=== PATIENT | female | born 1960 | race Caucasian/White ===

== ENCOUNTER 2017-04-17 18:48 | Emergency (ER) | payer OTHER ==
[~2017-04-17] VITALS: Ht 167.6 cm; Wt 90.7 kg
[~2017-04-17 18:48] MED LIST: ABILIFY 5 MG TAB5 M1 PO; AMBIEN 10 MG TA10 MG PO; AMBIEN PO; AMOXICILLIN 50500 M1 PO; ASPIR 8181 MG PO; ASPIRIN325 PO; ASPIRIN81 M2 PO; ATIVAN0.5 MG PO; ATIVAN1 MG PO; AUGMENTIN 875875 MG PO; AZITHROMYCIN 2250 MG PO; BACTRIM DS TAB1 EACH PO; BENTYL10 MG PO; BENTYL20 MG PO; BENZTROPINE ME0.5 MG; CARAFATE 1 GM TA1 G1; CARAFATE 1 GM TA1 G1 PO; CARAFATE 11 GM/10 M1 PO; CARISOPRODOL 3350 MG PO; CELEXA20 MG PO; CHLORPROMAZINE200 MG PO; CHLORPROMAZINE25 M3 PO; CHLORPROMAZINE50 M2 PO; CLONAZEPAM; COLACE100 MG PO; CRESTOR10 MG PO; CRESTOR20 MG PO; DARVOCET-N 1001 EACH PO; DESYREL300 MG PO; DUONEB 2.5-0.5 M3 ML INH; FENOFIBRATE160 MG PO; GABAPENTIN 100100 MG; GABAPENTIN PO; HYDROCODON-ACE1 EAC7 PO; HYDROCODON-ACE1 EACH PO; HYDROCODONE-AP1 EAC6 PO; IBUPROFEN 800800 M1 PO; IMDUR 30 MG TAB30 M1 PO; KEFLEX500 MG PO; LEVAQUIN 500 M500 M2 PO; LEVAQUIN 750 M750 MG PO; LEVOTHYROXIN0.025 MG PO; LEVOTHYROXINE0.05 MG PO; LOPRESSOR25 PO; LORTAB 5 MG/5001 TA1 PO; LOXAPINE25 MG; LOXAPINE5 MG PO; MEDROLDOSEPACK PO; METAMUCIL PAC1 UDPKT PO; METOPROLOL TART25 MG PO; MIRALAX17 GM PO; MOBIC7.5 M1 PO; NAPROSYN500 MG PO; NEURONTIN 300300 M1 PO; NEURONTIN 400400 M1 PO; NEURONTIN 400M400 M2 PO; NEURONTIN600 MG PO; NEXIUM; NEXIUM40 MG PO; NORCO 10-325 T1 EACH PO; NORCO 5-325 TA1 EAC1 PO; NORCO 5-325 TA1 EACH PO; NORFLEX100 MG PO; OLANZAPINE10 MG PO; OXYCODONE HCL 55 MG PO; PANTOPRAZOLE SO40 M1 PO; PAXIL10 MG; PERCOCET 5-3251 EACH PO; PERCOCET 7.5-31 EACH PO; PERCOCET PO; PREDNISONE 20 M20 MG PO; PROBIOTIC1 EAC1 PO; RELAFEN500 MG PO; REMERON15 M2 PO; TOPAMAX50 MG PO; TORADOL 10 MG T10 MG PO; TRAMADOL; TRAMADOL 50 MG50 MG PO; TRAZODONE 150150 M1 PO; TRICOR145 MG; TYLENOL325 MG PO; ULTRAM 50MG TAB50 MG PO; UNICOMPLEX M TA1 TA1 PO; VALIUM5 MG PO; VENTOLIN HFA 1818 GM INH; VENTOLIN HFA INH8 GM IH; VICODIN ES TAB1 EACH PO; VISTARIL 25 MG25 M1 PO; VITAMIN B-12500 MCG PO; XANAX XR1 MG PO; XANAX1 MG PO; XARELTO10 MG PO; ZANTAC 150MG T150 M1 PO; ZANTAC 150MG T150 MG PO; ZOFRAN; ZOFRAN 4 MG ORAL4 M1 DIS; ZOFRAN ODT4 MG DISSOLVE; ZOFRAN ODT4 MG PO; ZPAK PO; ZYPREXA 10 MG T10 MG PO; ZYPREXA 5 MG TAB5 M2 PO
[2017-04-17] MEDS ORDERED: ATIVAN0.5 MG PO (19:11)
[2017-04-17] MEDS ORDERED: CARAFATE 1 GM TA1 G1 PO (19:12)
[2017-04-17 19:43] LABS: BE 0 mmol/L (-2 to +3); PCO2 37.2 mmHg (35.0-45.0); pH 7.428 (7.340-7.450)
[2017-04-17 20:01] LABS: ABSOLUTE BASOPHILS 0.1 thou/uL (0.0-0.2); ABSOLUTE EOSINOPHILS 0.2 thou/uL (0.0-0.7); ABSOLUTE MONOCYTES 0.9 thou/uL (0.0-1.2); ABSOLUTE NEUTROPHILS 7.6 thou/uL (1.6-8.1); BASOPHILS 0.7 %; EOSINOPHILS 1.4 %; HEMATOCRIT 41.2 % (37.0-47.0); HEMOGLOBIN 13.3 gm/dL (12.0-15.0); LYMPHOCYTES 31.4 %; MCH 27.7 pg (26.0-34.0); MCHC 32.3 g/dL (28.0-37.0); MCV 85.6 fL (80.0-100.0); MONOCYTES 6.8 %; MPV 8.9 fl. (7.2-11.1); NUCLEATED RBCS 0 /100WBC; PLATELET COUNT* 241 thou/uL (150-400); POLYS 59.7 %; RBC 4.81 mil/uL (4.20-5.00); RDW-CV 17.9 % (10.5-14.5); WBC 12.7 thou/uL (4.0-11.0)
[2017-04-17 20:15] LABS: CREATININE 0.9 mg/dL (0.6-1.3); POTASSIUM 4.3 mmol/L (3.5-5.1)
[2017-04-17 20:24] LABS: URINE BILIRUBIN NEGATIVE (Negative); URINE BLOOD NEGATIVE (Negative); URINE CLARITY CLEAR; URINE COLOR YELLOW; URINE GLUCOSE-RANDOM NEGATIVE (Negative); URINE KETONES NEGATIVE (Negative); URINE LEUKOCYTES-REFLEX NEGATIVE (Negative); URINE NITRITE-REFLEX NEGATIVE (Negative); URINE PROTEIN NEGATIVE (Negative); URINE SPECIFIC GRAVITY <= 1.005 (1.005-1.030); URINE UROBILINOGEN 0.2 E.U./dl (0.2-1.0)
[2017-04-17 20:25] LABS: ALBUMIN 3.4 g/dL (3.4-5.0); TOTAL BILIRUBIN 0.4 mg/dL (<0.1-1.0)
[2017-04-17] MEDS ORDERED: PREDNISONE 20 M20 M1 PO (21:02)
[2017-04-17] MEDS ORDERED: LEVAQUIN 500 M500 MG PO (21:02)
[2017-04-17 21:51] VITALS: BP 130/76
--- NOTE | 2017-04-18 17:26 | EKG ---
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 : 1960 Requested By: Laura Cheema Order Number: [id number] MD: Rei Loza Measurements Intervals [place] Rate: 95 P: 44 IA: 161 QRS: 31 QRSD: 112 T: 21 QT: 394 QTc: 496 Interpretive Statements Sinus rhythm Borderline intraventricular conduction delay Abnormal inferior Q waves Borderline prolonged QT interval Compared to ECG 07/06/2016 13:51:48 Inferior Q waves now present Q waves now present Sinus tachycardia no longer present Myocardial infarct finding no longer present Electronically Signed On 04-18-2017 17:25:53 WEB PRODUCER by Rei Loza [email or web address] <ELECTRONICALLY SIGNED> By: Rei Loza MD, [facility] 04/18/17 1725 1903 1903 Rei Loza MD, [facility] /EPI
== END 2017-04-17 21:52 | disposition home or self-care (01) ==
LOC: M.ERS 18:48
PROVIDERS: Personal Emergency Response Attendant
DX: J18.9 Pneumonia, unspecified organism (principal); F31.9 Bipolar disorder, unspecified; E78.5 Hyperlipidemia, unspecified; F17.210 Nicotine dependence, cigarettes, uncomplicated; Z90.49 Acquired absence of other specified parts of digestive tract; Z95.5 Presence of coronary angioplasty implant and graft; Z88.5 Allergy status to narcotic agent

== ENCOUNTER 2017-06-22 13:54 | Emergency (ER) | payer OTHER ==
[~2017-06-22] VITALS: Ht 170.2 cm; Wt 95.3 kg
[~2017-06-22 13:54] MED LIST changes: +LEVAQUIN 500 M500 MG PO; +PREDNISONE 20 M20 M1 PO
[2017-06-22 14:25] LABS: ABSOLUTE BASOPHILS 0.1 thou/uL (0.0-0.2); ABSOLUTE EOSINOPHILS 0.2 thou/uL (0.0-0.7); ABSOLUTE LYMPHOCYTES 3.4 thou/uL (0.8-5.3); ABSOLUTE MONOCYTES 0.8 thou/uL (0.0-1.2); ABSOLUTE NEUTROPHILS 6.4 thou/uL (1.6-8.1); BASOPHILS 0.7 %; HEMATOCRIT 40.9 % (37.0-47.0); HEMOGLOBIN 13.3 gm/dL (12.0-15.0); MCHC 32.6 g/dL (28.0-37.0); MCV 85.9 fL (80.0-100.0); MONOCYTES 7.4 %; MPV 9.2 fl. (7.2-11.1); NUCLEATED RBCS 0 /100WBC; PLATELET COUNT* 228 thou/uL (150-400); POLYS 58.9 %; RBC 4.76 mil/uL (4.20-5.00); RDW-CV 17.7 % (10.5-14.5); WBC 10.8 thou/uL (4.0-11.0)
[2017-06-22 14:28] LABS: ANION GAP 11 mmol/L (7-16); APTT 29.2 Seconds (25.0-31.3); BUN 14 mg/dL (7-18); CALCIUM 8.6 mg/dL (8.5-10.1); CHLORIDE 105 mmol/L (98-107); CO2 25 mmol/L (21-32); GLUCOSE 140 mg/dL (70-99); INR 1.1; POTASSIUM 3.6 mmol/L (3.5-5.1); PROTIME 10.6 Seconds (9.20-11.50); SODIUM 141 mmol/L (136-145)
[2017-06-22 14:50] LABS: ALBUMIN 3.3 g/dL (3.4-5.0); ALKALINE PHOSPHATASE 120 U/L (46-116); CK-MB MASS < 0.5 ng/mL (<0.5-3.6); LIPASE 270 U/L (73-393); MAGNESIUM 1.9 mg/dL (1.8-2.4); NT-PRO BRAIN NAT PEPTIDE 113 pg/mL (<300); SGOT 18 U/L (15-37); SGPT 34 U/L (30-65); TOTAL BILIRUBIN 0.5 mg/dL (<0.1-1.0); TOTAL PROTEIN 7.3 g/dL (6.4-8.2); TROPONIN-I LEVEL <0.06 ng/mL (<0.06)
[2017-06-22 15:02] VITALS: BP 126/69
--- NOTE | 2017-06-23 14:09 | EKG ---
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 : 1960 Requested By: Sung Kirby Order Number: [id number] MD: Rei Loza Measurements Intervals [place] Rate: 93 P: 68 [place]: 147 QRS: 65 QRSD: 117 T: 19 QT: 403 QTc: 502 Interpretive Statements Sinus rhythm Rare pvc's Nonspecific intraventricular conduction delay Baseline wander in lead(s) V6 Compared to ECG 04/17/2017 19:03:48 Ventricular premature complex(es) now present Electronically Signed On 06-23-2017 14:09:01 CDT by Rei Loza [email or web address] <ELECTRONICALLY SIGNED> By: Rei Loza MD, [facility] 06/23/17 1409 1400 1400 Rei Loza MD, [facility] /EPI
== END 2017-06-22 15:03 | disposition home or self-care (01) ==
LOC: M.ERS 13:54
PROVIDERS: Family Medicine
DX: R07.89 Other chest pain (principal); F17.210 Nicotine dependence, cigarettes, uncomplicated; K21.9 Gastro-esophageal reflux disease without esophagitis; F31.9 Bipolar disorder, unspecified; E78.5 Hyperlipidemia, unspecified; Z90.49 Acquired absence of other specified parts of digestive tract; Z88.5 Allergy status to narcotic agent

== ENCOUNTER 2017-07-08 16:03 | Emergency (ER) | payer OTHER ==
[~2017-07-08] VITALS: Ht 170.2 cm; Wt 90.7 kg
[2017-07-08] MEDS ORDERED: TRAMADOL 50 MG50 MG PO (17:11)
[2017-07-08 17:17] VITALS: BP 135/74
== END 2017-07-08 17:25 | disposition home or self-care (01) ==
LOC: M.ERS 16:03
DX: M25.571 Pain in right ankle and joints of right foot (principal); M79.661 Pain in right lower leg; F31.9 Bipolar disorder, unspecified; E78.5 Hyperlipidemia, unspecified; K21.9 Gastro-esophageal reflux disease without esophagitis; F17.210 Nicotine dependence, cigarettes, uncomplicated; Z88.5 Allergy status to narcotic agent

== ENCOUNTER 2017-07-17 09:56 | Outpatient (CLI) | payer OTHER ==
[~2017-07-17] VITALS: Ht 167.6 cm; Wt 101.2 kg
[2017-07-17 11:32] LABS: ABSOLUTE BASOPHILS 0.1 thou/uL (0.0-0.2); ABSOLUTE EOSINOPHILS 0.2 thou/uL (0.0-0.7); ABSOLUTE LYMPHOCYTES 4.2 thou/uL (0.8-5.3); ABSOLUTE MONOCYTES 1.2 thou/uL (0.0-1.2); ABSOLUTE NEUTROPHILS 7.6 thou/uL (1.6-8.1); BASOPHILS 0.4 %; EOSINOPHILS 1.3 %; HEMATOCRIT 45.3 % (37.0-47.0); HEMOGLOBIN 14.7 gm/dL (12.0-15.0); LYMPHOCYTES 31.8 %; MCH 27.8 pg (26.0-34.0); MCHC 32.3 g/dL (28.0-37.0); MONOCYTES 9.4 %; NUCLEATED RBCS 0 /100WBC; PLATELET COUNT* 296 thou/uL (150-400); POLYS 57.1 %; RBC 5.27 mil/uL (4.20-5.00); RDW-CV 17.1 % (10.5-14.5); WBC 13.3 thou/uL (4.0-11.0)
[2017-07-17 11:38] LABS: ANION GAP 12 mmol/L (7-16); BUN 12 mg/dL (7-18); CHLORIDE 103 mmol/L (98-107); CO2 26 mmol/L (21-32); GLUCOSE 100 mg/dL (70-99); POTASSIUM 3.8 mmol/L (3.5-5.1); SODIUM 141 mmol/L (136-145)
[2017-07-17 11:48] LABS: ALBUMIN 3.6 g/dL (3.4-5.0); ALKALINE PHOSPHATASE 124 U/L (46-116); LIPASE 210 U/L (73-393); NT-PRO BRAIN NAT PEPTIDE 52 pg/mL (<300); SALICYLATE 4.6 mg/dL (2.8-20.0); SGOT 20 U/L (15-37); SGPT 34 U/L (30-65); TOTAL BILIRUBIN 0.5 mg/dL (<0.1-1.0); TOTAL PROTEIN 7.9 g/dL (6.4-8.2); TROPONIN-I LEVEL <0.06 ng/mL (<0.06)
[2017-07-17 11:49] LABS: ACETAMINOPHEN < 2 ug/mL (10-30); ALCOHOL < 10 mg/dL (<10)
[2017-07-17 11:57] LABS: BE 0.5 mmol/L (-2 to +3); HCO3 25.3 mmol/L (22.0-26.0); PCO2 41.3 mmHg (35.0-45.0); pH 7.405 (7.340-7.450)
[2017-07-17] MEDS ORDERED: LIPITOR 20 MG T20 M1 PO (12:07)
[2017-07-17] MEDS ORDERED: REMERON15 MG PO (12:08)
[2017-07-17] MEDS ORDERED: FLOVENT DISKU100 MCG INH (12:08)
[2017-07-17 12:49] LABS: URINE BILIRUBIN NEGATIVE (Negative); URINE BLOOD NEGATIVE (Negative); URINE CLARITY CLEAR; URINE COLOR YELLOW; URINE GLUCOSE-RANDOM NEGATIVE (Negative); URINE KETONES NEGATIVE (Negative); URINE LEUKOCYTES-REFLEX NEGATIVE (Negative); URINE NITRITE-REFLEX NEGATIVE (Negative); URINE PROTEIN NEGATIVE (Negative); URINE SPECIFIC GRAVITY 1.025 (1.005-1.030); URINE UROBILINOGEN 0.2 E.U./dl (0.2-1.0)
[2017-07-17 12:56] VITALS: BP 132/61
[2017-07-17 12:58] LABS: AMP/METHAMP Negative (Negative); BARBITURATES Negative (Negative); BENZODIAZEPINES Negative (Negative); COCAINE Negative (Negative); METHADONE Negative (Negative); OPIATES Negative (Negative); PCP Negative (Negative); THC Negative (Negative)
--- NOTE | 2017-07-17 16:31 | EKG ---
[place] [address] ELECTROCARDIOGRAM REPORT Name: NATHAN HOLLOWAY Room: [facility]#: [id number] Admission: 07/17/17 Attend Phys: Lino Whitaker MD Discharge: Date of : 62 Report #: [id number] THIS REPORT FOR: //name// [facility] ED Test Date: 2017-07-17 Test Time: 11:36:31 Pat Name: NATHAN JAVEDSHERRIE Department: Room: Gender: F Foley Artist: Dontae MARTINEZ : 1960 Requested By: Lino Whitaker Order Number: [id number] MD: Danny Lacy Measurements Intervals [place] Rate: 103 P: 64 [place]: 149 QRS: 60 QRSD: 117 T: 25 QT: 400 QTc: 524 Interpretive Statements Sinus tachycardia Ventricular premature complex Possible left atrial enlargement Inferior infarct, old Compared to ECG 06/22/2017 14:00:04 Ventricular premature complex(es) now present Myocardial infarct finding now present Sinus rhythm no longer present Electronically Signed On 07-17-2017 16:31:44 CDT by Danny Lacy [email or web address] <ELECTRONICALLY SIGNED> By: Danny Lacy MD, FACC 07/17/17 1631 1136 1136 Danny Lacy MD, [facility] /EPI
== END 2017-07-17 12:41 | disposition home or self-care (01) ==
LOC: M.RAD 09:56 → M.ERS 09:56 → M.RAD 10:40 → M.ERS 12:41
PROVIDERS: Emergency Medicine
DX: Z51.81 Encounter for therapeutic drug level monitoring (principal); N63.10 Unspecified lump in the right breast, unspecified quadrant; J98.11 Atelectasis; R56.9 Unspecified convulsions; R41.82 Altered mental status, unspecified; R92.8 Other abnormal and inconclusive findings on diagnostic imaging of breast

== ENCOUNTER 2017-10-28 12:15 | Emergency (ER) | payer OTHER ==
[~2017-10-28] VITALS: Ht 170.2 cm; Wt 90.7 kg
[~2017-10-28 12:15] MED LIST changes: +FLOVENT DISKU100 MCG INH; +LIPITOR 20 MG T20 M1 PO; +REMERON15 MG PO
[2017-10-28] MEDS ORDERED: PERCOCET 5-3251 EACH PO (13:29)
[2017-10-28 13:50] VITALS: BP 134/50
== END 2017-10-28 14:02 | disposition home or self-care (01) ==
LOC: M.ERS 12:15
DX: S52.122A Displaced fracture of head of left radius, initial encounter for closed fracture (principal); S52.042A Displaced fracture of coronoid process of left ulna, initial encounter for closed fracture; E78.5 Hyperlipidemia, unspecified; K22.70 Barrett's esophagus without dysplasia; K21.9 Gastro-esophageal reflux disease without esophagitis; F17.210 Nicotine dependence, cigarettes, uncomplicated; Z90.49 Acquired absence of other specified parts of digestive tract; Z88.5 Allergy status to narcotic agent; W01.0XXA Fall on same level from slipping, tripping and stumbling without subsequent striking against object, initial encounter; Y93.89 Activity, other specified; Y92.89 Other specified places as the place of occurrence of the external cause; Y99.8 Other external cause status